=== PATIENT | female | born 1985 | race Caucasian/White ===

== ENCOUNTER 2016-09-01 11:31 | Emergency (ER) | payer BC | END 2016-09-01 13:30 | disposition home or self-care (01) | LOC: ER 11:31 | DX: R51 Headache (principal); F41.9 Anxiety disorder, unspecified; F32.9 Major depressive disorder, single episode, unspecified; F17.210 Nicotine dependence, cigarettes, uncomplicated; Z87.440 Personal history of urinary (tract) infections; Z79.899 Other long term (current) drug therapy | CPT/HCPCS: 96374; 96375; J1200; J1885; J2765 ==